=== PATIENT | female | born 1970 | race Two or more races ===

== ENCOUNTER 2023-01-23 15:48 | Emergency (ER) | payer OTHER ==
[~2023-01-23] VITALS: Ht 157.5 cm; Wt 81.2 kg
[~2023-01-23 15:48] MED LIST: IBUPROFEN800 MG PO; METFORMIN HCL1000 MG PO; PAXIL40 MG PO; TYLENOL325 MG PO
[2023-01-23 16:52] LABS: RDW 13.6 (10.5-15.0)
[2023-01-23 16:54] LABS: BASOPHILS 1.1 % (0-2); EOSINOPHILS 1.4 % (0-6); HEMATOCRIT 39.1 % (35.0-50.0); HEMOGLOBIN 12.5 g/dL (12.0-18.0); MCH 27.7 (27-36); MCV 86.5 fl (81-99); MONOCYTES 4.4 % (0-12); NEUTROPHILS 67.1 % (39-80); PLATELET COUNT 362 K/uL (140-440); RBC 4.53 M/ul (4.3-5.7)
[2023-01-23 17:01] LABS: ALBUMIN 3.9 g/dL (3.4-5.0); ALBUMIN/GLOBULIN RATIO 1.03 (1.1-2.4); BILIRUBIN, TOTAL 0.3 ng/dL (0.2-1.0); BUN/CREATININE RATIO 21.51 (6.0-28.6); CALCIUM 9.6 mg/dL (8.5-10.1); CREATININE, SERUM 0.79 mg/dL (0.55-1.02); PROTEIN, TOTAL 7.7 g/dL (6.4-8.2)
[2023-01-23] MEDS ORDERED: ONDANSETRON ODT8 MG PO (19:04)
[2023-01-23 19:17] VITALS: BP 101/43
== END 2023-01-23 19:17 | disposition home or self-care (01) ==
LOC: ED 15:48
PROVIDERS: Emergency Medicine
DX: R51.9 Headache, unspecified (principal); E11.9 Type 2 diabetes mellitus without complications; Z79.84 Long term (current) use of oral hypoglycemic drugs; Z79.899 Other long term (current) drug therapy
CPT/HCPCS: 36415; 80053; 85025; A9270; J1885; J2405; J7030